=== PATIENT | male | born 1995 | race Caucasian/White ===

== ENCOUNTER 2017-09-01 22:15 | Outpatient (CLI) ==
[2014-02-25 15:07] VITALS: BMI 17.7
== END 2017-09-01 22:16 | disposition home or self-care (01) ==
LOC: AMBL 22:15
PROVIDERS: ATTEND Family Medicine
DX: R56.9 Unspecified convulsions (principal); F17.210 Nicotine dependence, cigarettes, uncomplicated

== ENCOUNTER 2018-07-13 21:29 | Emergency (ER) ==
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
[2018-07-13] MEDS ORDERED: DILANTIN IV STA (21:43)
[2018-07-13] MEDS ORDERED: SODIUM CHLORIDE IV STA (21:43)
[2018-07-13] MEDS ORDERED: CEREBYX 1,000 MG in SODIUM CHLORIDE 100 ML IV STA (21:48)
[2018-07-13] MEDS ORDERED: SODIUM CHLORIDE 1,000 ML IV STA (21:52)
[2018-07-13] MEDS ORDERED: CEREBYX ONE (21:53)
[2018-07-13 22:02] VITALS: TEMP 99.4; BMI 20.5
--- NOTE | 2018-07-13 22:14 | CT ---
EXAM: CT head without contrast. HISTORY: Headache. PROCEDURE: Contiguous axial CT images of the head without contrast with coronal and sagittal reforma ts. FINDINGS: The ventricles and basal cisterns are normal in size and configuration. No evidence of m ass or midline shift. No intracranial hemorrhage or evidence of large vessel infarct. No extra-axia l fluid collection. The paranasal sinuses and mastoid air cells are well-aerated and normal in appea anu. Impression: Negative CT of the head.
[2018-07-13] MEDS ORDERED: KEPPRA 1,000 MG in SODIUM CHLORIDE 100 ML IV STA (22:37)
[2018-07-14 00:18] VITALS: BP 138/87
== END 2018-07-13 23:59 | disposition home or self-care (01) ==
LOC: ED 21:29
DX: G40.309 Generalized idiopathic epilepsy and epileptic syndromes, not intractable, without status epilepticus (principal); F17.210 Nicotine dependence, cigarettes, uncomplicated
CPT/HCPCS: 36415; 80053; 82550; 82553; 84484; 85025; 93005; 93010; 96361; 96365; 96367; 99283